=== PATIENT | female | born 1975 | race Caucasian/White ===

== ENCOUNTER 2018-08-29 08:09 | Day surgery (SDC) | payer OTHER ==
[~2018-08-29 08:09] MED LIST: SEVOFLURANE 15 MIN
[2018-08-29] MEDS ORDERED: SUCCINYLCHOLINE CHLORIDE 100 MG/5 ML SYG IV (10:58)
[2018-08-29] MEDS ORDERED: NEOSTIGMINE 3 MG/3 ML SYRINGE ×2 (10:58→12:27)
[2018-08-29] MEDS ORDERED: ROCURONIUM 50 MG INJ ×2 (10:58→12:28)
[2018-08-29] MEDS ORDERED: LIDOCAINE 2% (SDV) 5 ML INJ (10:58)
[2018-08-29] MEDS ORDERED: PROPOFOL 20 ML (10:58)
[2018-08-29] MEDS ORDERED: GLYCOPYRROLATE 0.4 MG INJ ×3 (10:58→12:28)
[2018-08-29] MEDS ORDERED: ROPIVACAINE 0.5 % 30 ML VIAL (10:58)
[2018-08-29] MEDS ORDERED: EPINEPHrine 1 MG/ML 30 ML INJ ZFS (11:00)
[2018-08-29] MEDS ORDERED: MIDAZOLAM 1 MG/ML 2 ML INJ (11:04)
[2018-08-29] MEDS ORDERED: HYDROCODONE/APAP (5/325) TAB PO ×2 (11:30)
[2018-08-29] MEDS ORDERED: FENTAnyl 50 MCG/ML VIAL (12:02)
[2018-08-29] MEDS: EPINEPHrine 1 MG/ML 30 ML INJ IRR (12:15)
[2018-08-29] MEDS ORDERED: ONDANSETRON 4 MG INJ (12:27)
[2018-08-29] MEDS ORDERED: METOCLOPRAMIDE 10 MG INJ (12:27)
[2018-08-29] MEDS ORDERED: LABETALOL HCL 20MG INJ (12:27)
[2018-08-29] MEDS ORDERED: CEFAZOLIN 1 GM INJ (12:44)
[2018-08-29] MEDS: BACITRACIN/POLYMYXIN 0.9 GM OINT TOP (13:17)
[2018-08-29] MEDS ORDERED: MIDAZOLAM 1 MG/ML 2 ML INJ IV (14:00)
[2018-08-29] MEDS ORDERED: HYDROmorphONE 1 MG/5 ML IV SYRINGE IV ×2 (14:00)
[2018-08-29] MEDS ORDERED: EPHEDrine 25 MG/5 ML SYG IV (14:00)
[2018-08-29] MEDS ORDERED: ONDANSETRON 4 MG INJ IV (14:00)
[2018-08-29] MEDS ORDERED: LABETALOL HCL 20MG INJ IV (14:00)
[2018-08-29] MEDS ORDERED: hydrALAzine 20 MG INJ IV (14:00)
[2018-08-29] MEDS ORDERED: FENTAnyl 50 MCG/ML VIAL IV ×2 (14:00)
[2018-08-29] MEDS ORDERED: DIPHENHYDRAMINE 50 MG INJ IV (14:00)
[2018-08-29] MEDS ORDERED: OXYCODONE/ACETAMINOPHEN (5/325) TAB PO (14:00)
[2018-08-29] MEDS ORDERED: METOCLOPRAMIDE 10 MG INJ IV (14:00)
[2018-08-29] MEDS: FENTAnyl 50 MCG/ML VIAL IV (14:12)
[2018-08-29] MEDS: HYDROmorphONE 1 MG/5 ML IV SYRINGE IV (14:12)
[2018-08-29] MEDS: MEPERIDINE 25 MG INJ IV (14:13)
[2018-08-29] MEDS: OXYCODONE/ACETAMINOPHEN (5/325) TAB PO (14:22)
[2018-08-29] MEDS: ONDANSETRON 4 MG INJ IV (15:28)
== END 2018-08-29 15:57 | disposition home or self-care (01) ==
LOC: SDS 08:09
DX: M25.812 Other specified joint disorders, left shoulder (principal); M19.012 Primary osteoarthritis, left shoulder; I10 Essential (primary) hypertension
CPT/HCPCS: 29824; 84703